=== PATIENT | female | born 1995 | race Caucasian/White ===

== ENCOUNTER 2018-08-18 17:49 | Inpatient (IN) | payer OTHER ==
[~2018-08-18] VITALS: Ht 160 cm; Wt 54.9 kg
[2018-08-18 17:56] VITALS: Ht 160 cm; Wt 54.9 kg
[2018-08-18 18:25] LABS: BASOPHIL % 0.3 % (0-2); PLATELET COUNT 337 x10^3mcL (130-400); RED CELL DISTRIBUTION WIDTH 13.6 % (11.5-14.5)
[2018-08-18 18:26] LABS: microscopic required? YES; urine erythrocyte NEGATIVE (NEGATIVE)
[2018-08-18 19:32] LABS: CALCIUM 9.4 mg/dL (8.5-10.1); CARBON DIOXIDE 22.8 mmol/L (21-32); CHLORIDE SERUM 102 mmol/L (98-107); CREATININE SERUM 0.6 mg/dL (0.6-1.0); GFR1 > 60 mL/min; GLUCOSE SERUM 99 mg/dL (74-106); POTASSIUM SERUM 3.4 mmol/L (3.5-5.1); SODIUM SERUM 139 mmol/L (136-145)
[2018-08-18 19:37] LABS: ALBUMIN 4.4 g/dL (3.4-5.0); ALKALINE PHOSPHATASE 70 U/L (46-116); ALT/SGPT 11 U/L (14-59); AST/SGOT 10 U/L (15-37); BILIRUBIN TOTAL 2.34 mg/dL (0.20-1.00); LIPASE 102 IU/L (73-393)
[2018-08-18 19:40] LABS: TOTAL PROTEIN, SERUM 8.3 g/dL (6.4-8.2)
[2018-08-18 21:05] LABS: MAGNESIUM 2.1 mg/dL (1.8-2.4); PHOSPHOROUS 3.5 mg/dL (2.5-4.9)
[2018-08-19 00:09] VITALS: BP 126/78
[2018-08-19 05:33] VITALS: BP 103/65
[2018-08-19 06:52] LABS: PLATELET COUNT 287 x10^3mcL (130-400); RED CELL DISTRIBUTION WIDTH 13.3 % (11.5-14.5)
[2018-08-19 07:02] LABS: BASOPHIL % 0 % (0-2)
[2018-08-19 07:04] LABS: CARBON DIOXIDE 22.8 mmol/L (21-32); CHLORIDE SERUM 104 mmol/L (98-107); CREATININE SERUM 0.5 mg/dL (0.6-1.0); GFR1 > 60 mL/min; GLUCOSE SERUM 124 mg/dL (74-106); POTASSIUM SERUM 4.4 mmol/L (3.5-5.1); SODIUM SERUM 137 mmol/L (136-145)
[2018-08-19 08:16] VITALS: BP 107/65
[2018-08-19 11:39] VITALS: BP 117/79
[2018-08-19 16:10] VITALS: BP 115/72
[2018-08-19 16:13] VITALS: BP 115/72
== END 2018-08-19 16:56 | disposition home or self-care (01) | DRG 234 ==
LOC: ED 17:49 → MU 20:45
PROVIDERS: Emergency Medicine; Surgery; ADMIT Internal Medicine
PROC: 0DTJ4ZZ Resection of Appendix, Percutaneous Endoscopic Approach (ICD-10-PCS; principal; 2018-08-18 22:00)
DX: K35.80 Unspecified acute appendicitis (principal); D72.829 Elevated white blood cell count, unspecified; R74.0 Nonspecific elevation of levels of transaminase and lactic acid dehydrogenase [LDH]; L68.0 Hirsutism; E87.6 Hypokalemia
CPT/HCPCS: J2250; J2405; J2543; J3010; J3490; J7030; Q0092; Q9967